=== PATIENT | female | born 1960 | race Caucasian/White ===

== ENCOUNTER 2017-07-09 18:26 | Emergency (ER) | payer MEDICARE, OTHER ==
[~2017-07-09] VITALS: Ht 157.5 cm; Wt 48.5 kg
[~2017-07-09 18:26] MED LIST: ALBU2.5V14 NEB; ALPR1TAB6 PO; BECL8.7A6 IH; BECL8.7A7 IH; CHOL100013 PO; CYCL10TA2 PO; DULO30CA43 PO; ERGO500027 PO; ESOM40CA25 PO; FLUO10CA13 PO; HALO5AMP2 PO; HYDR-971 PO; ORPH100T PO; TIOT18CA IH; VENTOLIN HFA18 GM IH
[2017-07-09 19:19] VITALS: BP 123/61
[2017-07-09] MEDS ORDERED: HYDR-963 PO (19:33)
[2017-07-09] MEDS ORDERED: CLIN150C14 PO (19:33)
--- NOTE | 2017-07-09 19:33 | PHYS DOC ---
Past Medical History Past Medical History: Arthritis, Bipolar, Bronchitis, Cancer, COPD, Depression , GERD, Schizophrenia, Other Additional Past Medical Histor: CHRONIC BACK PROBLEMS, OSTEOPOROSIS, STOMACH CA , ESOPHAGEAL CA Past Surgical History: Cholecystectomy, Hysterectomy, Tonsillectomy, Tubal ligation, Other Additional Past Surgical Histo: esophageal and stomach dessection, lumbar bone spurs, hernia, eye,wrist Alcohol Use: None Drug Use: None Adult General Chief Complaint Chief Complaint: MULTIPLE COMPLAINTS HPI HPI Patient is a 57 year old female with history of bipolar, depression, schizophrenia, COPD, who presents today with 2 complaints. Patient is complaining of pain on the left hand. She states she had left hand surgery done by a hand surgeon a couple weeks ago. Patient states for the last 4 days she's had increased pain with no known injury. Patient states she called the hand surgeon at the end of last week but has not heard back from them. She is also complaining of an abscess on her right pubic that she's had for one week. She states she's has tried [id number] remedies to bring it to her head with no relief. Review of Systems Review of Systems Constitutional: Denies fever or chills [] Musculoskeletal: Left hand pain Integument: Pubic abscess Neurologic: Denies headache, focal weakness or sensory changes [] Allergies Allergies Allergies Coded Allergies Type Severity Reaction Last Updated Verified adhesive Allergy Intermediate 12/16/15 No aspirin Allergy Intermediate 12/16/15 No cephalexin Allergy Intermediate 12/16/15 No latex Allergy Intermediate 12/16/15 No levofloxacin Allergy Intermediate 06/14/14 No sulfamethizole Allergy Intermediate 06/14/14 No ibuprofen Adverse Reaction Unknown 07/04/15 No Physical Exam Physical Exam Constitutional: Well developed, well nourished, no acute distress, non-toxic appearance. [] Skin: Warm, dry, right pubic with an integrated area approximately 1 x 1 cm with surrounding cellulitis. The area is warm tender to touch but not fluctuant. Back: No tenderness, no CVA tenderness. [] Extremities: Left hand is in a splint. There is multiple old healed surgical scars noted on the left hand. Full range of motion to the left fingers. +2 left radial pulse. Cap refill less than 2 seconds the left hand. Adequate radial medial and ulnar sensation to the left hand. Neurologic: Alert and oriented X 3, normal motor function, normal sensory function, no focal deficits noted. [] Psychologic: Affect normal, judgement normal, mood normal. [] Current Patient Data Vital Signs Vital Signs Date Time Temp Pulse Resp B/P (MAP) Pulse Ox O2 Delivery O2 Flow Rate FiO2 07/09/17 19:19 97.8 52 18 99 Room Air 97.8 EKG EKG [] Radiology/Procedures Radiology/Procedures [] Course & Med Decision Making Course & Med Decision Making Pertinent Labs and Imaging studies reviewed. (See chart for details) Patient has pubic abscess that was not ready to be drained. Recommended warm compresses to the area. Discharged on clindamycin. Tetanus is up-to-date. She is also complaining of chronic left hand pain. She had surgery to the left hand acouple weeks ago. I recommended she follows up with her hand surgeon for this. Dragon Disclaimer Dragon Disclaimer This electronic medical record was generated, in whole or in part, using a voice recognition dictation system. Departure Departure Impression: Primary Impression: Left hand pain Additional Impression: Abscess of pubic region Disposition: 01 HOME, SELF-CARE Condition: STABLE Referrals: CHARLETTE SHEPHERD MD (PCP) Follow up with the hand surgeon and the primary care doctor in the next 7 days Patient Instructions: Abscess Additional Instructions: You were seen with left hand pain and pubic abscess. You need to follow-up with your hands surgeon for the hand pain. We put you on antibiotics to clear the pubic abscess. Continue applying warm compresses to the area 2 or 3 times a day. If the area comes to a head come back to the emergency room and will drain it. Complete your antibiotics. Scripts Hydrocodone/Apap 10-325 (NORCO 10-325 TABLET) 1 Each Tablet 1 TAB PO Q4-6HRS, #10 TAB Prov: YANNA JACOB APRN 07/09/17 Clindamycin Hcl (CLINDAMYCIN HCL) 150 Mg Capsule 3 CAP PO TID, #90 CAP Prov: YANNA JACOB APRN 07/09/17 Problem Qualifiers YANNA JACOB APRN Jul 09, 2017 19:33
== END 2017-07-09 19:38 | disposition home or self-care (01) ==
LOC: ER 18:26
DX: M79.642 Pain in left hand (principal); L02.214 Cutaneous abscess of groin; K21.9 Gastro-esophageal reflux disease without esophagitis; F20.9 Schizophrenia, unspecified; F31.9 Bipolar disorder, unspecified; M19.90 Unspecified osteoarthritis, unspecified site; Z90.710 Acquired absence of both cervix and uterus; Z90.49 Acquired absence of other specified parts of digestive tract; Z98.51 Tubal ligation status; Z88.6 Allergy status to analgesic agent; Z88.1 Allergy status to other antibiotic agents; Z88.2 Allergy status to sulfonamides; Z88.8 Allergy status to other drugs, medicaments and biological substances; Z91.040 Latex allergy status
CPT/HCPCS: 99283

== ENCOUNTER → 2017-07-21 | Day surgery (SDC) | payer MEDICARE, OTHER ==
[~2017-07-21] MED LIST changes: +CLIN150C14 PO; +ESOM20CA PO; +HYDR-963 PO; +HYDROmorphone 2 MG/ML VIAL IV PRN; +IV RINGERS,LACTATED 1000ML 1,000 ML IV SCH; +LIDOCAINE 1% PF 2 ML VIAL. ID PRN; +LIDOCAINE 2% PF Vial for OR 5 ML VIAL. ONE; +MORPHINE SULFATE 2 MG/ML DISP.SYRIN. IV PRN; +ONDA4TAB7 PO; +ONDANSETRON PF 4 MG/2 ML VIAL. IV PRN; +PROCHLORPERAZINE 10 MG/2 ML VIAL. IV PRN; +PROPOFOL 20 ML IV ONE; +fentaNYL PF VIAL 100 MCG/2 ML VIAL IV PRN
[2017-07-21 11:13] VITALS: BP 106/48
--- NOTE | 2017-07-23 09:44 | CONS ---
DATE OF CONSULTATION: 07/21/2017 DATE OF SERVICE: 07/21/2017 REASON FOR CONSULTATION: History of colonic polyps and dysphagia. REFERRING PHYSICIAN: Kam Castillo MD HISTORY OF PRESENT ILLNESS: A 57-year-old female with past medical history significant for hypertension, anxiety, depression, history of Goel's, peptic ulcer disease, osteoporosis, asthma, status post tubal ligation, cholecystectomy, hysterectomy, esophageal myotomy and ____ esophageal resection seen with recurrent dysphagia mainly for solids. She has had difficulties with this through the years with ischemic stricture requiring balloon dilatation on intermittent basis. She was here again for repeat evaluation. She also has history of colonic polyps and surveillance of colon recommended at this time. MEDICATIONS: Include albuterol, Ventolin, alprazolam, beclomethasone, cyclobenzaprine, duloxetine, omeprazole, Haldol, Zofran. PAST MEDICAL HISTORY: Hypertension, anxiety, depression, Goel's, peptic ulcer, osteoporosis, asthma. ALLERGIES: ASPIRIN, CEPHALEXIN, IBUPROFEN, LEVOFLOXACIN. SOCIAL HISTORY: She is single, is an ex-smoker. FAMILY HISTORY: Noncontributory. REVIEW OF SYSTEMS: Per above. PHYSICAL EXAMINATION: GENERAL: Reveals a well-nourished, well-developed female. VITAL SIGNS: Temperature is 97.1, pulse 72, respirations 18. HEENT: Normocephalic and atraumatic head. Pupils and extraocular muscles not tested. Sclerae anicteric. NECK: Supple. LUNGS: Clear. CARDIOVASCULAR: Reveals S1, S2 without S3, S4 or appreciable murmur. ABDOMEN: Reveals soft abdomen, normal bowel sounds, without appreciable hepatosplenomegaly with multiple surgical incisions. EXTREMITIES: Reveals no cyanosis, clubbing or edema. IMPRESSION: 1. Dysphagia with a nonischemic esophageal stricture. Recommend EGD with possible dilatation. Risks and benefits of procedure have been discussed. The patient is willing to proceed. 2. History of colonic polyps. Surveillance exam is recommended. Risks and benefits have been discussed with the patient including risk of perforation during the operation. She is willing to proceed at this time. I would like to thank Dr. Castillo for allowing us to consult and participate in this patient's care. TERRY GALLAGHER MD DR: MADIHA/tisha JOB#: [id number] / [id number] KAM Ron MD
--- NOTE | 2017-07-24 15:07 | PATHOLOGY ---
PATHOLOGY REPORT * * * * * * * * FINAL DIAGNOSIS: Sigmoid colon polypectomy: - Tubular adenoma. COMMENT: There is no high grade dysplasia or evidence of malignancy. (JPM:mml; 07/24/2017) REPORT ELECTRONICALLY SIGNED BY: Kyler Jennings M.D. DATE/TIME: 07/24/2017 15:06 * * * * * * * * GROSS PATHOLOGY: Received in formalin labeled "Sayda Bui, sigmoid colon polypectomy," is a 0.6 x 0.5 x 0.4 cm polypoid piece of roque soft tissue. The margin is inked and the tissue is sectioned perpendicular to the margin and submitted in its entirety in cassette A1. (TSD; 07/21/2017) INITIAL CPT CODE(S): A; 03007 Professional services performed [place] [address] Technical services performed by [facility] at [address] [place] [address] [address], [place] [address]. SPECIMEN(S) RECEIVED: A.Sigmoid colon polypectomy CLINICAL HISTORY: History of polyp PATIENT: SAYDA BUI /AGE: 704/14/1960 (Age: 57) PATIENT #: [id number] ALT CASE #: SPECIMEN COLLECTION DATE: 07/21/2017 SPECIMEN RECEIVED DATE: 07/21/2017 [facility] - [address] [place] [address] - PHONE: [phone] * * * END OF REPORT * * *
== END | disposition home or self-care (01) ==
LOC: ENDOS 09:15
PROVIDERS: ATTEND Internal Medicine Gastroenterology
DX: Z09 Encounter for follow-up examination after completed treatment for conditions other than malignant neoplasm (principal); Z86.010 Personal history of colon polyps; D12.5 Benign neoplasm of sigmoid colon; K64.0 First degree hemorrhoids; K22.2 Esophageal obstruction; K29.50 Unspecified chronic gastritis without bleeding; E78.00 Pure hypercholesterolemia, unspecified; J44.9 Chronic obstructive pulmonary disease, unspecified; F41.9 Anxiety disorder, unspecified; F32.9 Major depressive disorder, single episode, unspecified; F17.200 Nicotine dependence, unspecified, uncomplicated; Z72.0 Tobacco use; Z90.49 Acquired absence of other specified parts of digestive tract; Z90.710 Acquired absence of both cervix and uterus; Z87.440 Personal history of urinary (tract) infections; Z88.6 Allergy status to analgesic agent; Z91.040 Latex allergy status; Z91.048 Other nonmedicinal substance allergy status
CPT/HCPCS: 43249; 45385; J2704; 88305; J2001

== ENCOUNTER 2017-11-05 16:45 | Emergency (ER) | payer OTHER, MEDICARE ==
[2017-11-05] MEDS: predniSONE 10 MG TABLET PO ×2 (17:56)
== END 2017-11-05 18:54 | disposition home or self-care (01) ==
LOC: ER 16:45
DX: R07.89 Other chest pain (principal); M54.12 Radiculopathy, cervical region; K21.9 Gastro-esophageal reflux disease without esophagitis; J44.9 Chronic obstructive pulmonary disease, unspecified; F31.9 Bipolar disorder, unspecified; F20.9 Schizophrenia, unspecified; G89.29 Other chronic pain; Z88.1 Allergy status to other antibiotic agents; Z88.6 Allergy status to analgesic agent; Z88.2 Allergy status to sulfonamides; Z91.041 Radiographic dye allergy status; Z91.040 Latex allergy status
CPT/HCPCS: 72050; 93005; 99284-25; J7512

== ENCOUNTER → 2017-12-01 | Outpatient (CLI) | payer OTHER | END | disposition home or self-care (01) | LOC: MRI 10:26 | DX: M47.892 Other spondylosis, cervical region (principal); M50.222 Other cervical disc displacement at C5-C6 level; M48.02 Spinal stenosis, cervical region; M25.78 Osteophyte, vertebrae | CPT/HCPCS: 72141 ==

== ENCOUNTER → 2017-12-07 | Outpatient (CLI) | payer OTHER ==
[~2017-12-07] MED LIST changes: -ALBU2.5V14 NEB; -ALPR1TAB6 PO; -BECL8.7A6 IH; -BECL8.7A7 IH; -CHOL100013 PO; -CLIN150C14 PO; -CYCL10TA2 PO; -DULO30CA43 PO; -ERGO500027 PO; -ESOM20CA PO; -ESOM40CA25 PO; -FLUO10CA13 PO; -HALO5AMP2 PO; -HYDR-963 PO; -HYDR-971 PO; -HYDROmorphone 2 MG/ML VIAL IV PRN; +IOHEXOL 180 MG/ML 10 ML VIAL.; -IV RINGERS,LACTATED 1000ML 1,000 ML IV SCH; -LIDOCAINE 1% PF 2 ML VIAL. ID PRN; -LIDOCAINE 2% PF Vial for OR 5 ML VIAL. ONE; -MORPHINE SULFATE 2 MG/ML DISP.SYRIN. IV PRN; -ONDA4TAB7 PO; -ONDANSETRON PF 4 MG/2 ML VIAL. IV PRN; -ORPH100T PO; -PROCHLORPERAZINE 10 MG/2 ML VIAL. IV PRN; -PROPOFOL 20 ML IV ONE; -TIOT18CA IH; -VENTOLIN HFA18 GM IH; -fentaNYL PF VIAL 100 MCG/2 ML VIAL IV PRN; +methylPREDNISolone ACETATE 40 MG/ML VIAL.; +methylPREDNISolone ACETATE 80 MG/ML VIAL.
== END ==
LOC: PNCL 09:49
DX: M50.123 Cervical disc disorder at C6-C7 level with radiculopathy (principal); E78.00 Pure hypercholesterolemia, unspecified; I10 Essential (primary) hypertension; J44.9 Chronic obstructive pulmonary disease, unspecified; F17.210 Nicotine dependence, cigarettes, uncomplicated; G47.39 Other sleep apnea; K21.9 Gastro-esophageal reflux disease without esophagitis; M19.90 Unspecified osteoarthritis, unspecified site; F20.9 Schizophrenia, unspecified; F41.9 Anxiety disorder, unspecified; F31.9 Bipolar disorder, unspecified; Z90.49 Acquired absence of other specified parts of digestive tract; Z86.010 Personal history of colon polyps; Z90.710 Acquired absence of both cervix and uterus; Z87.440 Personal history of urinary (tract) infections
CPT/HCPCS: 62321; J1030; J1040; Q9965

== ENCOUNTER 2017-12-12 17:43 | Inpatient (IN) | payer OTHER ==
[2017-12-12 18:57] LABS: ADD MAN DIFF? NO
[2017-12-12 19:00] LABS: BASO # 0.1 x10^3/uL (0.0-0.2); BASO % 1 % (0-3); EOS # 0.1 x10^3/uL (0.0-0.7); EOS % 1 % (0-3); HEMATOCRIT 47.6 % (36.0-47.0); HEMOGLOBIN 15.8 g/dL (12.0-15.5); LYMPH # 2.6 x10^3/uL (1.0-4.8); LYMPH % 25 % (24-48); MEAN CORPUSCULAR HEMOGLOBIN 31 pg (25-35); MEAN CORPUSCULAR HGB CONC 33 g/dL (31-37); MEAN CORPUSCULAR VOLUME 93 fL (79-100); MONO # 0.7 x10^3/uL (0.0-1.1); MONO % 6 % (0-9); NEUT # 7.2 x10^3uL (1.8-7.7); NEUT % 67 % (31-73); PLATELET COUNT 240 x10^3/uL (140-400); RED BLOOD COUNT 5.15 x10^6/uL (3.50-5.40); RED CELL DISTRIBUTION WIDTH 13.3 % (11.5-14.5); WHITE BLOOD COUNT 10.6 x10^3/uL (4.0-11.0)
[2017-12-12 19:07] LABS: ANION GAP 11 (6-14); BLOOD UREA NITROGEN 7 mg/dL (7-20); BUN/CREATININE RATIO 8 (6-20); CALCIUM 8.5 mg/dL (8.5-10.1); CARBON DIOXIDE 28 mmol/L (21-32); CHLORIDE 103 mmol/L (98-107); CREATININE 0.9 mg/dL (0.6-1.0); GLUCOSE 104 mg/dL (70-99); POTASSIUM 3.3 mmol/L (3.5-5.1); SODIUM 142 mmol/L (136-145)
[2017-12-12 19:12] LABS: PARTIAL THROMBOPLASTIN TIME 25 SEC (24-38); PROTHROMBIN TIME PATIENT 12.9 SEC (11.7-14.0)
[2017-12-12 19:13] LABS: ALBUMIN 3.3 g/dL (3.4-5.0); ALBUMIN/GLOBULIN RATIO 0.9 (1.0-1.7); ALK PHOS 108 U/L (46-116); ALT (SGPT) 18 U/L (14-59); AST (SGOT) 14 U/L (15-37); TOTAL BILIRUBIN 0.6 mg/dL (0.2-1.0); TOTAL PROTEIN 6.8 g/dL (6.4-8.2)
[2017-12-12] MEDS: POTASSIUM CHLORIDE 20 MEQ TABLET.ER. PO (19:30)
[2017-12-12] MEDS ORDERED: fentaNYL PF VIAL 100 MCG/2 ML VIAL IV (19:30)
[2017-12-12] MEDS ORDERED: ONDANSETRON PF 4 MG/2 ML VIAL. IV (19:30)
[2017-12-12] MEDS: ONDANSETRON PF 4 MG/2 ML VIAL. IV (20:23)
[2017-12-12] MEDS: PROMETHAZINE IM 25 MG/ML VIAL IM (20:23)
[2017-12-12] MEDS: HALOPERIDOL LACTATE 5 MG/ML VIAL. IVP (20:45)
[2017-12-12] MEDS ORDERED: PROPOFOL 40 ML IV (22:08)
[2017-12-12] MEDS ORDERED: MIDAZOLAM HCL/PF 2 MG/2 ML VIAL. (22:09)
[2017-12-12] MEDS: DEXAMETHASONE SOD PHOS 4 MG/ML VIAL IV (22:24)
[2017-12-12] MEDS ORDERED: IV NORMAL SALINE 1000ML BAG 1,000 ML IV (23:45)
[2017-12-13] MEDS ORDERED: DEXAMETHASONE SOD PHOS 4 MG/ML VIAL IV
[2017-12-13 05:01] LABS: BASO % 0 % (0-3); EOS % 0 % (0-3); HEMATOCRIT 41.9 % (36.0-47.0); LYMPH # 0.8 x10^3/uL (1.0-4.8); LYMPH % 11 % (24-48); MEAN CORPUSCULAR HEMOGLOBIN 31 pg (25-35); MEAN CORPUSCULAR HGB CONC 33 g/dL (31-37); MEAN CORPUSCULAR VOLUME 92 fL (79-100); MONO # 0.1 x10^3/uL (0.0-1.1); MONO % 2 % (0-9); NEUT # 6.1 x10^3uL (1.8-7.7); NEUT % 87 % (31-73); PLATELET COUNT 198 x10^3/uL (140-400); RED BLOOD COUNT 4.53 x10^6/uL (3.50-5.40); RED CELL DISTRIBUTION WIDTH 13.4 % (11.5-14.5)
[2017-12-13 05:12] LABS: ADD MAN DIFF? YES
[2017-12-13 05:20] LABS: CALCIUM 8.1 mg/dL (8.5-10.1)
[2017-12-13 05:21] LABS: ANION GAP 10 (6-14); BLOOD UREA NITROGEN 5 mg/dL (7-20); CARBON DIOXIDE 26 mmol/L (21-32); CHLORIDE 108 mmol/L (98-107); CREATININE 0.8 mg/dL (0.6-1.0); GFR 74.5; GLUCOSE 135 mg/dL (70-99); POTASSIUM 4.2 mmol/L (3.5-5.1); SODIUM 144 mmol/L (136-145)
[2017-12-13] MEDS: DEXAMETHASONE SOD PHOS 4 MG/ML VIAL IV (06:13)
[2017-12-13] MEDS: FLUTICASONE 50MCG/NASAL SPRAY 16GM BOTTLE. NS (09:00)
[2017-12-13] MEDS ORDERED: ALPRAZolam 1 MG TABLET PO ×2 (09:00)
[2017-12-13 09:10] LABS: % EOS 1 % (0-5); % LYMPHS 6 % (24-48); % MONOS 2 % (0-10); % SEGS 91 % (35-66)
[2017-12-13 09:11] LABS: PLT ESTIMATE ADEQUATE (ADEQUATE)
[2017-12-13 09:54] LABS: THYROID STIM HORMONE (TSH) 1.529 uIU/mL (0.358-3.74)
[2017-12-13] MEDS: PANTOPRAZOLE 40 MG TABLET.DR. PO (11:55)
[2017-12-13] MEDS: HYDROcodone/APAP 7.5/325MG 1 TAB TABLET PO ×2 (11:56→17:47)
[2017-12-13] MEDS: ALBUTEROL SULFATE 2.5 MG/3 ML NEBU. NEB ×2 (13:10→20:07)
[2017-12-13] MEDS: BUDESONIDE 0.5 MG/2 ML NEBU. NEB ×2 (13:10→20:07)
[2017-12-13] MEDS: CYCLOBENZAPRINE 10 MG TABLET. PO (21:50)
[2017-12-13] MEDS: HALOPERIDOL 2 MG TABLET. PO (21:50)
[2017-12-14] MEDS: PANTOPRAZOLE 40 MG TABLET.DR. PO (06:15)
[2017-12-14] MEDS: ALBUTEROL SULFATE 2.5 MG/3 ML NEBU. NEB ×2 (07:38)
[2017-12-14] MEDS: BUDESONIDE 0.5 MG/2 ML NEBU. NEB (07:39)
[2017-12-14] MEDS: HYDROcodone/APAP 7.5/325MG 1 TAB TABLET PO (08:40)
[2017-12-14] MEDS: FLUTICASONE 50MCG/NASAL SPRAY 16GM BOTTLE. NS (08:40)
== END 2017-12-14 10:05 | disposition home or self-care (01) | DRG 52 ==
LOC: ER 17:43 → 4 NORTH 19:39
DX: G82.20 Paraplegia, unspecified (principal); E44.1 Mild protein-calorie malnutrition; D51.9 Vitamin B12 deficiency anemia, unspecified; M48.02 Spinal stenosis, cervical region; F20.9 Schizophrenia, unspecified; M48.04 Spinal stenosis, thoracic region; M48.061 Spinal stenosis, lumbar region without neurogenic claudication; F44.9 Dissociative and conversion disorder, unspecified; F31.9 Bipolar disorder, unspecified; E78.5 Hyperlipidemia, unspecified; E87.6 Hypokalemia; F17.210 Nicotine dependence, cigarettes, uncomplicated; G47.30 Sleep apnea, unspecified; G89.29 Other chronic pain; I10 Essential (primary) hypertension; J44.9 Chronic obstructive pulmonary disease, unspecified; K21.9 Gastro-esophageal reflux disease without esophagitis; M06.9 Rheumatoid arthritis, unspecified; M81.0 Age-related osteoporosis without current pathological fracture; Z82.3 Family history of stroke; Z82.49 Family history of ischemic heart disease and other diseases of the circulatory system; Z83.3 Family history of diabetes mellitus; Z85.01 Personal history of malignant neoplasm of esophagus; Z85.028 Personal history of other malignant neoplasm of stomach; Z87.11 Personal history of peptic ulcer disease; Z90.710 Acquired absence of both cervix and uterus; F41.9 Anxiety disorder, unspecified; K21.0 Gastro-esophageal reflux disease with esophagitis; M19.90 Unspecified osteoarthritis, unspecified site; Z90.49 Acquired absence of other specified parts of digestive tract; Z88.2 Allergy status to sulfonamides; Z88.8 Allergy status to other drugs, medicaments and biological substances; Z88.1 Allergy status to other antibiotic agents; Z91.040 Latex allergy status; R73.9 Hyperglycemia, unspecified; R00.1 Bradycardia, unspecified; Z68.20 Body mass index [BMI] 20.0-20.9, adult
CPT/HCPCS: 36415; 70450; 72141; 72146; 72148; 80048; 80053; 83036; 84443; 85007; 85025; 85610; 85730; 94640; 94760; 96372; 96374; 96375; 96376; 99285; 99285-25; J1100; J2060; J2250; J2405; J2550; J2704; J7613; J7626

== ENCOUNTER → 2017-12-22 | Outpatient (CLI) | payer OTHER | LOC: PNCL 08:58 | DX: M50.123 Cervical disc disorder at C6-C7 level with radiculopathy (principal); E78.00 Pure hypercholesterolemia, unspecified; I10 Essential (primary) hypertension; J44.9 Chronic obstructive pulmonary disease, unspecified; G47.33 Obstructive sleep apnea (adult) (pediatric); K27.9 Peptic ulcer, site unspecified, unspecified as acute or chronic, without hemorrhage or perforation; G47.30 Sleep apnea, unspecified; K20.8 Other esophagitis; M06.80 Other specified rheumatoid arthritis, unspecified site; M19.90 Unspecified osteoarthritis, unspecified site; F20.0 Paranoid schizophrenia; F32.9 Major depressive disorder, single episode, unspecified; F41.9 Anxiety disorder, unspecified; F17.200 Nicotine dependence, unspecified, uncomplicated; Z88.1 Allergy status to other antibiotic agents; Z88.2 Allergy status to sulfonamides; Z88.6 Allergy status to analgesic agent; Z88.8 Allergy status to other drugs, medicaments and biological substances; Z91.040 Latex allergy status; Z91.018 Allergy to other foods; Z86.010 Personal history of colon polyps; Z98.890 Other specified postprocedural states; Z90.49 Acquired absence of other specified parts of digestive tract; Z90.710 Acquired absence of both cervix and uterus | CPT/HCPCS: 62321; J1030; J1040; Q9965 ==

== ENCOUNTER → 2018-01-05 | Outpatient (CLI) | payer OTHER | LOC: PNCL 09:37 | DX: M50.123 Cervical disc disorder at C6-C7 level with radiculopathy (principal); Z88.2 Allergy status to sulfonamides; Z91.040 Latex allergy status; Z88.8 Allergy status to other drugs, medicaments and biological substances; Z91.048 Other nonmedicinal substance allergy status | CPT/HCPCS: 62321; J1030; J1040; Q9965 ==

== ENCOUNTER 2018-06-02 16:27 | Emergency (ER) | payer OTHER ==
[~2018-06-02] VITALS: Ht 152.4 cm; Wt 49.4 kg
[~2018-06-02 16:27] MED LIST changes: +ADAP45CR2 TP; +ALBU2.5V14 NEB; +ALPR1TAB6 PO; +AMMO385C5 TP; +BECL8.7A6 IH; +BECL8.7A7 IH; +CHOL100013 PO; +CLIN150C14 PO; +CYAN10005 PO; +CYCL10TA2 PO; +DULO30CA43 PO; +ERGO500027 PO; +ESOM20CA PO; +ESOM40CA25 PO; +FLUO10CA13 PO; +FLUO15CR TP; +FLUT16SP NS; +HALO2TAB PO; +HALO5AMP2 PO; +HYDR-2762 PO; +HYDR-963 PO; +HYDR-971 PO; -IOHEXOL 180 MG/ML 10 ML VIAL.; +METH4TAB2 PO; +ONDA4TAB7 PO; +ORPH100T PO; +TIOT18CA IH; +VENTOLIN HFA18 GM IH; -methylPREDNISolone ACETATE 40 MG/ML VIAL.; -methylPREDNISolone ACETATE 80 MG/ML VIAL.
[2018-06-02 16:59] VITALS: BP 123/59
[2018-06-02 17:51] LABS: BASO % 1 % (0-3); EOS # 0.2 x10^3/uL (0.0-0.7); EOS % 3 % (0-3); HEMATOCRIT 41.3 % (36.0-47.0); LYMPH # 2.1 x10^3/uL (1.0-4.8); LYMPH % 39 % (24-48); MEAN CORPUSCULAR HEMOGLOBIN 31 pg (25-35); MEAN CORPUSCULAR HGB CONC 34 g/dL (31-37); MEAN CORPUSCULAR VOLUME 91 fL (79-100); MONO # 0.4 x10^3/uL (0.0-1.1); MONO % 8 % (0-9); NEUT # 2.8 x10^3uL (1.8-7.7); NEUT % 50 % (31-73); PLATELET COUNT 179 x10^3/uL (140-400); RED BLOOD COUNT 4.52 x10^6/uL (3.50-5.40); RED CELL DISTRIBUTION WIDTH 13.3 % (11.5-14.5); WHITE BLOOD COUNT 5.5 x10^3/uL (4.0-11.0)
[2018-06-02 18:05] LABS: CALCIUM 8.2 mg/dL (8.5-10.1); CREATININE 0.9 mg/dL (0.6-1.0); GFR 64.8; TOTAL BILIRUBIN 0.7 mg/dL (0.2-1.0); TOTAL PROTEIN 6.1 g/dL (6.4-8.2)
[2018-06-02 18:07] LABS: POTASSIUM 2.9 mmol/L (3.5-5.1)
[2018-06-02] MEDS ORDERED: POTASSIUM CHLORIDE 20 MEQ TABLET.ER. PO ONE (18:30)
[2018-06-02] MEDS ORDERED: METH4TAB2 PO (18:42)
[2018-06-02] MEDS ORDERED: CLIN300C8 PO (18:42)
[2018-06-02] MEDS ORDERED: POTASSIUM CHLORIDE 20 MEQ/15 ML ORAL LIQUID. PO ONE (18:45)
--- NOTE | 2018-06-02 18:45 | PHYS DOC ---
Past Medical History Past Medical History: Arthritis, Bipolar, Bronchitis, Cancer, COPD, Depression , GERD, Schizophrenia, Other Additional Past Medical Histor: CHRONIC BACK PROBLEMS, OSTEOPOROSIS, STOMACH CA , ESOPHAGEAL CA Past Surgical History: Cholecystectomy, Hysterectomy, Tonsillectomy, Tubal ligation, Other Additional Past Surgical Histo: esophageal and stomach dessection, lumbar bone spurs, hernia, eye,wrist Alcohol Use: None Drug Use: None Adult General Chief Complaint Chief Complaint: SKIN RASH/ABSCESS [facility] HPI Patient is a 58 year old female who presents with a itchy and painful rash covering her back. The patient also has what appear to be a few petechiae on her forearms. She denies musculoskeletal pain. She states that the rash gives her a burning sensation. She denies fever, nausea or vomiting. Review of Systems Review of Systems Constitutional: Denies fever or chills [] Respiratory: Denies cough or shortness of breath [] Cardiovascular: No additional information not addressed in HPI [] GI: Denies abdominal pain, nausea, vomiting, bloody stools or diarrhea [] : Denies dysuria or hematuria [] Musculoskeletal: Denies back pain or joint pain [] Integument: See history of present illness Neurologic: Denies headache, focal weakness or sensory changes [] Endocrine: Denies polyuria or polydipsia [] All other systems were reviewed and found to be within normal limits, except as documented in this note. Current Medications Current Medications Current Medications Medications (Trade) Dose Ordered Sig/Radha Start Time Stop Time Status Last Admin Dose Admin Potassium Chloride (KCl Oral Soln) 40 meq 1X ONCE 06/02/18 18:45 06/02/18 18:46 Potassium Chloride (Klor-Con) 40 meq 1X ONCE 06/02/18 18:30 06/02/18 18:31 DC 06/02/18 18:22 40 MEQ Allergies Allergies Allergies Coded Allergies Type Severity Reaction Last Updated Verified adhesive Allergy Intermediate 12/14/17 Yes aspirin Allergy Intermediate 12/14/17 Yes cephalexin Allergy Intermediate 12/14/17 Yes latex Allergy Intermediate 12/14/17 Yes levofloxacin Allergy Intermediate 12/14/17 Yes sulfamethizole Allergy Intermediate 12/14/17 Yes ibuprofen Adverse Reaction Intermediate 12/14/17 Yes Uncoded Allergies Type Severity Reaction Last Updated Verified dial soap Allergy Unknown 12/07/17 ivory soap Allergy Unknown 12/07/17 Physical Exam Physical Exam Constitutional: Well developed, well nourished, no acute distress, non-toxic appearance. [] Cardiovascular:Heart rate regular rhythm, no murmur [] Lungs & Thorax: Bilateral breath sounds clear to auscultation [] Abdomen: Bowel sounds normal, soft, no tenderness, no masses, no pulsatile masses. [] Skin: Generalized erythematous papules to the patient's mid to lower back with evidence of excoriation, looks consistent with folliculitis. Back: No tenderness, no CVA tenderness. [] Extremities: No tenderness, no cyanosis, no clubbing, ROM intact, no edema. [] Neurologic: Alert and oriented X 3, normal motor function, normal sensory function, no focal deficits noted. [] Psychologic: Affect normal, judgement normal, mood normal. [] Current Patient Data Vital Signs Vital Signs Date Time Temp Pulse Resp B/P (MAP) Pulse Ox O2 Delivery O2 Flow Rate FiO2 06/02/18 16:59 98.1 54 18 98 Room Air 98.1 Lab Values Laboratory Tests Test 06/02/18 17:40 White Blood Count 5.5 x10^3/uL (4.0-11.0) Red Blood Count 4.52 x10^6/uL (3.50-5.40) Hemoglobin 14.0 g/dL (12.0-15.5) Hematocrit 41.3 % (36.0-47.0) Mean Corpuscular Volume 91 fL (79-100) Mean Corpuscular Hemoglobin 31 pg (25-35) Mean Corpuscular Hemoglobin Concent 34 g/dL (31-37) Red Cell Distribution Width 13.3 % (11.5-14.5) Platelet Count 179 x10^3/uL (140-400) Neutrophils (%) (Auto) 50 % (31-73) Lymphocytes (%) (Auto) 39 % (24-48) Monocytes (%) (Auto) 8 % (0-9) Eosinophils (%) (Auto) 3 % (0-3) Basophils (%) (Auto) 1 % (0-3) Neutrophils # (Auto) 2.8 x10^3uL (1.8-7.7) Lymphocytes # (Auto) 2.1 x10^3/uL (1.0-4.8) Monocytes # (Auto) 0.4 x10^3/uL (0.0-1.1) Eosinophils # (Auto) 0.2 x10^3/uL (0.0-0.7) Basophils # (Auto) 0.0 x10^3/uL (0.0-0.2) Sodium Level 141 mmol/L (136-145) Potassium Level 2.9 mmol/L (3.5-5.1) *L Chloride Level 106 mmol/L (98-107) Carbon Dioxide Level 31 mmol/L (21-32) Anion Gap 4 (6-14) L Blood Urea Nitrogen 10 mg/dL (7-20) Creatinine 0.9 mg/dL (0.6-1.0) Estimated GFR (Cockcroft-Gault) 64.8 BUN/Creatinine Ratio 11 (6-20) Glucose Level 63 mg/dL (70-99) L Calcium Level 8.2 mg/dL (8.5-10.1) L Total Bilirubin 0.7 mg/dL (0.2-1.0) Aspartate Amino Transferase (AST) 17 U/L (15-37) Alanine Aminotransferase (ALT) 18 U/L (14-59) Alkaline Phosphatase 116 U/L (46-116) Total Protein 6.1 g/dL (6.4-8.2) L Albumin 3.0 g/dL (3.4-5.0) L Albumin/Globulin Ratio 1.0 (1.0-1.7) Laboratory Tests 06/02/18 17:40 Laboratory Tests 06/02/18 17:40 EKG EKG [] Radiology/Procedures Radiology/Procedures [] Course & Med Decision Making Course & Med Decision Making Pertinent Labs and Imaging studies reviewed. (See chart for details) []The patient was given 40 mEq of potassium in the emergency department. Dragon Disclaimer Dragon Disclaimer This electronic medical record was generated, in whole or in part, using a voice recognition dictation system. Departure Departure Impression: Primary Impression: Folliculitis Additional Impression: Hypokalemia Disposition: 01 HOME, SELF-CARE Condition: STABLE Referrals: CHARLETTE SHEPHERD MD (PCP) Patient Instructions: Folliculitis, Hypokalemia-Brief Additional Instructions: Increase your intake of potassium rich foods. Follow-up with your primary care provider within the week. Take medication as directed. If worsening return to the emergency department. Scripts Methylprednisolone (MEDROL) 4 Mg Tab.ds.pk 1 PKG PO UD, #1 PKG Prov: JACKELYN GOODMAN APRN 06/02/18 Clindamycin Hcl (CLINDAMYCIN HCL) 300 Mg Capsule 1 CAP PO TID, #30 CAP Prov: JACKELYN GOODMAN APRN 06/02/18 Problem Qualifiers JACKELYN GOODMAN APRN Jun 02, 2018 18:45
== END 2018-06-02 19:03 | disposition home or self-care (01) ==
LOC: ER 16:27
DX: L73.9 Follicular disorder, unspecified (principal); E87.6 Hypokalemia; F31.9 Bipolar disorder, unspecified; J44.9 Chronic obstructive pulmonary disease, unspecified; K21.9 Gastro-esophageal reflux disease without esophagitis; G89.29 Other chronic pain; F20.9 Schizophrenia, unspecified; Z88.1 Allergy status to other antibiotic agents; Z88.6 Allergy status to analgesic agent; Z88.2 Allergy status to sulfonamides; Z88.8 Allergy status to other drugs, medicaments and biological substances; Z91.040 Latex allergy status
CPT/HCPCS: 36415; 80053; 85025; 99284

== ENCOUNTER → 2018-10-04 | Outpatient (CLI) | payer OTHER ==
[~2018-10-04] MED LIST changes: +CLIN300C8 PO; -HYDR-2762 PO; +HYDR-2765 PO; +HYDR-3135 PO; +HYDR-3164 PO; -HYDR-963 PO; -HYDR-971 PO
--- NOTE | 2018-10-04 14:44 | RAD ---
DATE: 10/04/2018 EXAM: MAMMO JAIDEN SCREENING BILATERAL HISTORY: Routine screening COMPARISON: None available This study was interpreted with the benefit of Computerized Aided Detection (CAD). Breast Density: HETERO The breast parenchyma is heterogenously dense, which could reduce sensitivity of mammography. Breast parenchyma level C. FINDINGS: 2-D and 3-D tomosynthesis imaging was performed in CC and MLO projections. The breasts are asymmetric with increased density laterally in the left breast compared to the right. This probably represents a normal variant in the fibroglandular pattern in this patient. No spiculated mass or architectural distortion is seen. No suspicious microcalcifications are present. IMPRESSION: Mild breast asymmetry, likely a normal variant. In the absence of previous mammograms to establish stability, a targeted ultrasound exam of the lateral aspect left breast is suggested for further evaluation. BI-RADS CATEGORY: 0 INCOMPLETE: NEEDS ADDITIONAL IMAGING EVALUATION AND/OR PRIOR MAMMOGRAMS FOR COMPARISON. RECOMMENDED FOLLOW-UP: ADD ADDITIONAL IMAGING PQRS compliance statement: Patient information was entered into a reminder system with a target due date for the next mammogram. Mammography is a sensitive method for finding small breast cancers, but it does not detect them all and is not a substitute for careful clinical examination. A negative mammogram does not negate a clinically suspicious finding and should not result in delay in biopsying a clinically suspicious abnormality. "Our facility is accredited by the [employer] Mammography Program."
== END | disposition home or self-care (01) ==
LOC: MAMMO 13:45
PROVIDERS: ATTEND Nurse Practitioner Gerontology
DX: Z12.31 Encounter for screening mammogram for malignant neoplasm of breast (principal)
CPT/HCPCS: 77063; 77067

== ENCOUNTER → 2018-10-05 | Outpatient (CLI) | payer OTHER ==
--- NOTE | 2018-10-05 12:56 | RAD ---
Left breast ultrasound, 09/27/2018: History: Abnormal mammograms A targeted ultrasound exam of the lateral aspect of left breast was performed. Normal heterogeneous fibroglandular shadows are present. No solid mass or unusual fluid collection is seen. The asymmetry noted on the recent mammograms most likely represents a normal variant in the fibroglandular pattern. IMPRESSION: The targeted ultrasound exam of the left breast reveals no abnormality. Routine yearly mammographic follow-up is suggested. BI-RADS 2-benign findings
== END | disposition home or self-care (01) ==
LOC: US 12:04
PROVIDERS: ATTEND Nurse Practitioner Gerontology
DX: R92.8 Other abnormal and inconclusive findings on diagnostic imaging of breast (principal)
CPT/HCPCS: 76641

== ENCOUNTER 2018-12-30 12:47 | Emergency (ER) | payer OTHER ==
[~2018-12-30] VITALS: Ht 154.9 cm; Wt 47.6 kg
[2018-12-30 13:05] VITALS: BP 109/59
--- NOTE | 2018-12-30 13:40 | PHYS DOC ---
Past Medical History Past Medical History: Arthritis, Bipolar, Bronchitis, Cancer, COPD, Depression , GERD, Schizophrenia, Other Additional Past Medical Histor: CHRONIC BACK PROBLEMS, OSTEOPOROSIS, STOMACH CA , ESOPHAGEAL CA Past Surgical History: Cholecystectomy, Hysterectomy, Tonsillectomy, Tubal ligation, Other Additional Past Surgical Histo: esophageal and stomach dissection, lumbar bone spurs, hernia, eye, L wrist Additional Information: 1/2 PACK/DAY Alcohol Use: None Drug Use: None Adult General Chief Complaint Chief Complaint: HAND PROBLEM HPI HPI 58 yo F with left thumb injury. She was opening sliding glass door when her family member was trying to close it. Her thumb was caught in it and now it is bruised with swelling. Pain is moderate, nonradiating and mildly alleviated with apap about 1.5 hours ago. ROS is neg for cp, soa, or any other injuries. All other review of systems is negative unless otherwise noted in history of present illness. ED course: 58 yo presenting with thumb injury. X-ray reviewed by myself shows an acute proximal phalanx fracture of the proximal first phalanx on the lateral side. This is consistent with the patient's pain is. We'll place the patient in thumb spica and refer the patient to orthopedic surgery. The patient also has snuffbox tenderness so we will protect this as well with this splint. Review of Systems Review of Systems SEE ABOVE. Allergies Allergies Allergies Coded Allergies Type Severity Reaction Last Updated Verified adhesive Allergy Intermediate 12/14/17 Yes aspirin Allergy Intermediate 12/14/17 Yes cephalexin Allergy Intermediate 12/14/17 Yes latex Allergy Intermediate 12/14/17 Yes levofloxacin Allergy Intermediate 12/14/17 Yes sulfamethizole Allergy Intermediate 12/14/17 Yes ibuprofen Adverse Reaction Intermediate 12/14/17 Yes Uncoded Allergies Type Severity Reaction Last Updated Verified dial soap Allergy Unknown 12/07/17 ivory soap Allergy Unknown 12/07/17 Physical Exam Physical Exam SEE ABOVE Constitutional: Well developed, well nourished, no acute distress, non-toxic appearance. [] HENT: Normocephalic, atraumatic, bilateral external ears normal, oropharynx moist, no oral exudates, nose normal. [] Eyes: PERRLA, EOMI, conjunctiva normal, no discharge. [] Neck: Normal range of motion, no tenderness, supple, no stridor. [] Cardiovascular:Heart rate regular rhythm, no murmur [] Lungs & Thorax: Bilateral breath sounds clear to auscultation [] Abdomen: Bowel sounds normal, soft, no tenderness, no masses, no pulsatile masses. [] Skin: Warm, dry, no erythema, no rash. [] Back: No tenderness, no CVA tenderness. [] Extremities: left hand is nvi with palpable pulse. ttp along proximal phalynx with swelling. mild ttp in the snuff box. Neurologic: Alert and oriented X 3, normal motor function, normal sensory function, no focal deficits noted. [] Psychologic: Affect normal, judgement normal, mood normal. [] Current Patient Data Vital Signs Vital Signs Date Time Temp Pulse Resp B/P (MAP) Pulse Ox O2 Delivery O2 Flow Rate FiO2 12/30/18 13:05 97.9 54 18 109/59 (76) 95 Room Air 97.9 EKG EKG [] Radiology/Procedures Radiology/Procedures [] Course & Med Decision Making Course & Med Decision Making Pertinent Labs and Imaging studies reviewed. (See chart for details) [] Dragon Disclaimer Dragon Disclaimer This electronic medical record was generated, in whole or in part, using a voice recognition dictation system. Departure Departure Impression: Primary Impression: Closed fracture of base of distal phalanx of left thumb Disposition: 01 HOME, SELF-CARE Condition: STABLE Referrals: CHARLETTE SHEPHERD MD (PCP) LACHELLE ESPINO II, MD Additional Instructions: Thank you for allowing us to participate in your care today. Return to the emergency department you have any new or worsening symptoms, or if you are concerned for any reason. Return to emergency department if you have any new or concerning symptoms including but not limited to fever, chills, nausea, vomiting, intractable pain, any new rashes, chest pain, shortness of air , uncontrolled bleeding, difficulty breathing, and/or vision loss. Follow up with your primary care physician within Dr. Espino orthopedic surgery. Call your Primary Doctor tomorrow and inform them of your visit today. If you do not have a primary care provider we are happy to provide you with a list of our primary care providers contact information. This condition should be evaluated by your primary care physician and any recommended consulting services for continued management within 2 days after discharge. If at any time, you are having difficulty getting into your primary care doctor or a specialist, return to the emergency department. RUBEN SNOW MD Dec 30, 2018 13:40
--- NOTE | 2018-12-30 13:48 | RAD ---
Examination: HAND LEFT 3V History: injured night. there is bruising and discoloration of thumb and back of hand Comparison/Correlation: None Findings: Total 3 images of the left hand were obtained. Plate and associated screws at the dorsal aspect of the left distal radius and third metacarpal bone noted. There is a small plate along the bursal aspect of the second proximal metacarpal region and first proximal metacarpal region. Marked osteopenia is noted. Degenerative narrowing of interphalangeal joints is mild. Marked deformity of carpal bones medially identified. No acute fracture or acute bony destruction. Soft tissues are unremarkable. Impression: Marked osteopenia. No definite acute process. Electronically signed by: Faheem Fair MD (12/30/2018 1:45 PM) [facility]
--- NOTE | 2018-12-30 14:15 | RAD ---
Examination: WRIST 2V LEFT History: SNUFF BOX TENDERNESS. I ATTEMPTED A DEDICATED SCAPHOID VIEW 2X AT DRS REQUEST. PATIENT HAS LIMITED RANGE OF MOTION CANT DEVIATE WRIST LATERALLY. PATIENT IS ON A SPONGE AT 20 DEGREES CR ANGLE PERPENDUCULAR. Comparison/Correlation: Left hand 3 view x-ray examination performed earlier on the same day Findings: 2 views of the left wrist were obtained in the PA projection. Very limited range of motion limits optimal positioning to assess for scaphoid bone. Postoperative findings again seen. Carpal bones are diminutive and severely deformed. Osteopenia is notable. Bony density which may represent nonunion fracture of the ulnar styloid is chronic in appearance. Impression: Severe carpal bone deformity. Osteopenia. No acute fracture identified although evaluation may be limited with severe osteopenia and limited ability to optimally position the patient's left wrist. Electronically signed by: Faheem Fair MD (12/30/2018 2:10 PM) [facility]
== END 2018-12-30 15:00 | disposition home or self-care (01) ==
LOC: ER 12:47
DX: S62.522A Displaced fracture of distal phalanx of left thumb, initial encounter for closed fracture (principal); M85.842 Other specified disorders of bone density and structure, left hand; M21.832 Other specified acquired deformities of left forearm; F31.9 Bipolar disorder, unspecified; J44.9 Chronic obstructive pulmonary disease, unspecified; K21.9 Gastro-esophageal reflux disease without esophagitis; F20.9 Schizophrenia, unspecified; G89.29 Other chronic pain; F17.200 Nicotine dependence, unspecified, uncomplicated; Z88.1 Allergy status to other antibiotic agents; Z88.2 Allergy status to sulfonamides; Z88.5 Allergy status to narcotic agent; Z88.6 Allergy status to analgesic agent; Z91.040 Latex allergy status; Z88.8 Allergy status to other drugs, medicaments and biological substances; W23.0XXA Caught, crushed, jammed, or pinched between moving objects, initial encounter; Y93.89 Activity, other specified; Y92.89 Other specified places as the place of occurrence of the external cause; Y99.8 Other external cause status
CPT/HCPCS: 29125; 73100; 73130; 99283-25

== ENCOUNTER → 2020-02-28 | Outpatient (CLI) | payer OTHER, MEDICAID ==
[~2020-02-28] MED LIST changes: +CYAN-25 PO; +CYAN10002 IJ; -CYAN10005 PO; +DOCU-109 PO; -DULO30CA43 PO; +DULO30CA44 PO; +DULO60CA6 PO; +FLUT12AE IH; +IPRA4AER IH; +ONDA8TAB9 PO
== END | disposition home or self-care (01) ==
LOC: SURGPAT 12:52
PROVIDERS: ATTEND Orthopaedic Surgery Sports Medicine
DX: Z01.818 Encounter for other preprocedural examination (principal); Z11.59 Encounter for screening for other viral diseases; M65.312 Trigger thumb, left thumb
CPT/HCPCS: C9803; U0003; 36415

== ENCOUNTER 2020-03-04 08:10 | Day surgery (SDC) | payer OTHER, MEDICAID ==
[~2020-03-04] VITALS: Ht 154.9 cm; Wt 48.5 kg
[~2020-03-04 08:10] MED LIST changes: +CLINDAMYCIN 900MG PREMIX 50 ML IV PRN; +DEXAMETHASONE SOD PHOS 4 MG/ML VIAL ONE; -DOCU-109 PO; +HYDROmorphone 2 MG/ML VIAL IV PRN; +IV RINGERS,LACTATED 1000ML 1,000 ML IV SCH; +LIDOCAINE 1% PF 2 ML VIAL. ID PRN; +LIDOCAINE 2% PF 5 ML VIAL. ONE; +MORPHINE SULFATE 2 MG/ML VIAL. IV PRN; -ONDA8TAB9 PO; +ONDANSETRON PF 4 MG/2 ML VIAL. ONE; +PHENYLEPHRINE in 0.9% NACL PF 1 MG/10 ML SYRINGE. IV ONE; +PROCHLORPERAZINE 10 MG/2 ML VIAL. IV PRN; +PROPOFOL 10 MG/ML (20ML) VIAL. IV ONE; +ROCURONIUM 50 MG/5 ML VIAL. ONE; +SUCCINYLCHOLINE 200 MG/10 ML VIAL. ONE; +ePHEDrine PF IN SALINE 50 MG/10 ML SYRINGE. IV ONE; +fentaNYL PF VIAL 100 MCG/2 ML VIAL IV PRN; +fentaNYL PF VIAL 100 MCG/2 ML VIAL ONE
--- NOTE | 2020-03-04 09:01 | DISCH ---
DISCHARGE INSTRUCTIONS Condition on Discharge Condition on Discharge: Stable Activity After Discharge Activity Instructions for Disc: No restrictions, Activity as tolerated Other activity instructions: wiggle fingers Weight Bearing Status after Di: Partial weight bearing Diet after Discharge Diet after Discharge: Regular Wound Incision Care Wound/Incision Care: Ice to area for comfort, Keep wound elevated, Change dressing Contacting the DRCally after DC Call your doctor for: Concerns you may have Follow-Up Follow up with: Izabella in 2 wks Treatment/Equipment after DC Adaptive Equipment Issued: None LACHELLE ESPINO II, MD March 04, 2020 09:01
[2020-03-04] MEDS ORDERED: BUPIVACAINE MPF 0.5% 30 ML VIAL. ONE (09:11)
[2020-03-04] MEDS ORDERED: LIDOCAINE 1% PF 30 ML VIAL. ONE (09:11)
[2020-03-04] MEDS ORDERED: SEVOFLURANE 31 TO 60 MINUTES. IH ONE (09:52)
--- NOTE | 2020-03-04 10:03 | PDOC4 ---
Operative Note Operative Note Date of procedure: 03/04/2020 Surgeon: Eugenio Espino Correspondence Transcriber: Chidi Phipps Preoperative diagnosis: Trigger fingers of left first second and third digits Postoperative diagnosis: Same Procedure performed: Open left first second and third trigger finger releases Anesthesia: general Tourniquet time: 20min Blood loss: 2 ml Findings: thickened nodule in flexor tendons of digits 1-3, left hand Complications: none Reason for procedure: Patient is a very pleasant 59-year-old female with painful catching at her digits. She had trigger finger injections from another provider which gave her temporary relief. When I had seen her in clinic, she is primarily complaining of the first and second digits catching and locking, but lately her third and gotten much worse. She requested trigger finger releases of left first second and third digits. We discussed the risks, benefits, alternatives and she wished to proceed. Reason for procedure: Patient was greeted in the preoperative area by myself or the correct digits of her left upper extremity were verified and marked. She was taken to the operative suite, her antibiotics were started as she was brought back. Once in the operating room, she had successful induction of a general anesthetic after being transferred gently supine to the operating table. She is secured to the bed with all pressure points padded. The hand board attachment was secured to the operating table. Nonsterile tourniquet was applied to her left upper extremity. Left upper extremity was exsanguinated with an Esmarch and tourniquet insufflated to 250 mmHg. Our standard preoperative timeout was conducted. I then began the procedure by making a transverse incision at the base of her thumb and subjacent to the metacarpal head, I dissected subcutaneous tissue with a mosquito, using bipolar cautery for hemostasis. Identified the flexor tendon and A1 yana and used a tenotomy scissors to transect the A1 yana, my secretary administrative assistant was holding Ragnell retractors for my visualization. I then directed my attention to repeating the same maneuver at the second and third digits. After I was certain I had released the A1 yana at these sites, I use the mosquito to deliver the flexor tendons from the operative field to help and tried accomplish complete release which I was confident I had. After this, the wounds were thoroughly irrigated out. The skin was closed with simple interrupted 3-0 nylon. Local anesthetic was injected in the mario-incisional soft tissues. The arm and hand were cleansed and dried and a sterile bulky dressing was applied. Prior to wound closure, all counts correct x2 and tourniquet had been let down, hemostasis ensured with electrocautery. At the conclusion, she was awakened from anesthesia, she tolerated surgery well. No complications. She was taken to PACU in a stable and extubated condition. Postoperative plan is to discharge her home. With wound care and postoperative instructions discussed with family and given a written form. I will see her back in 2 weeks, sooner should a problem arise EUGENIO ESPINO II, MD March 04, 2020 10:03
[2020-03-04] MEDS ORDERED: DOCU-109 PO (10:21)
[2020-03-04] MEDS ORDERED: HYDR-3164 PO (10:22)
[2020-03-04] MEDS ORDERED: ONDA8TAB9 PO (10:23)
[2020-03-04] MEDS ORDERED: HYDROcodone/APAP 5/325MG 1 TAB TABLET PO ONE (10:30)
[2020-03-04] MEDS ORDERED: HYDROcodone/APAP 5/325MG 1 TAB TABLET ONE (10:34)
[2020-03-04 10:44] VITALS: BP 119/59
== END 2020-03-04 11:16 | disposition home or self-care (01) ==
LOC: SURG 08:10
PROVIDERS: ATTEND Orthopaedic Surgery Sports Medicine
DX: M65.322 Trigger finger, left index finger (principal); M65.332 Trigger finger, left middle finger; M65.312 Trigger thumb, left thumb; Z88.6 Allergy status to analgesic agent; Z91.048 Other nonmedicinal substance allergy status; Z88.8 Allergy status to other drugs, medicaments and biological substances; Z91.040 Latex allergy status; Z79.899 Other long term (current) drug therapy
CPT/HCPCS: 26055; A7015; J0330; J2405; J2704; J3010; J3490; J1100; J2370

== ENCOUNTER → 2020-09-28 | Outpatient (CLI) | payer OTHER, MEDICAID ==
[~2020-09-28] MED LIST changes: -CLIN300C8 PO; +CLIN300C9 PO; -CLINDAMYCIN 900MG PREMIX 50 ML IV PRN; -DEXAMETHASONE SOD PHOS 4 MG/ML VIAL ONE; +DOCU-109 PO; -HYDROmorphone 2 MG/ML VIAL IV PRN; -IV RINGERS,LACTATED 1000ML 1,000 ML IV SCH; -LIDOCAINE 1% PF 2 ML VIAL. ID PRN; -LIDOCAINE 2% PF 5 ML VIAL. ONE; -MORPHINE SULFATE 2 MG/ML VIAL. IV PRN; +ONDA8TAB9 PO; -ONDANSETRON PF 4 MG/2 ML VIAL. ONE; -PHENYLEPHRINE in 0.9% NACL PF 1 MG/10 ML SYRINGE. IV ONE; -PROCHLORPERAZINE 10 MG/2 ML VIAL. IV PRN; -PROPOFOL 10 MG/ML (20ML) VIAL. IV ONE; -ROCURONIUM 50 MG/5 ML VIAL. ONE; -SUCCINYLCHOLINE 200 MG/10 ML VIAL. ONE; -ePHEDrine PF IN SALINE 50 MG/10 ML SYRINGE. IV ONE; -fentaNYL PF VIAL 100 MCG/2 ML VIAL IV PRN; -fentaNYL PF VIAL 100 MCG/2 ML VIAL ONE
--- NOTE | 2020-09-28 16:25 | RAD ---
DATE: 09/28/2020 3:30 PM EXAM: MAMMO JAIDEN SCREENING BILATERAL HISTORY: Screening COMPARISON: 10/04/2018 Bilateral CC and MLO views of the breasts were performed. Bilateral breast tomosynthesis was performed in CC and MLO projections. This study was interpreted with the benefit of Computerized Aided Detection (CAD). FINDINGS: Breast Density: HETERO The breast parenchyma Is heterogeneously dense, which could reduce sensitivity of mammography. Breast parenchyma level C No suspicious masses, microcalcifications or architectural distortion is present to suggest malignancy in either breast. The visualized axillae are unremarkable. IMPRESSION: No mammographic evidence of malignancy. BI-RADS CATEGORY: 1 NEGATIVE RECOMMENDED FOLLOW-UP: 12M 12 MONTH FOLLOW-UP Annual screening mammography is recommended, unless clinically indicated sooner based on symptoms or change in physical exam. PQRS compliance statement: Patient information was entered into a reminder system with a target due date for the next mammogram. Mammography is a sensitive method for finding small breast cancers, but it does not detect them all and is not a substitute for careful clinical examination. A negative mammogram does not negate a clinically suspicious finding and should not result in delay in biopsying a clinically suspicious abnormality. "Our facility is accredited by the [employer] Mammography Program."
== END ==
LOC: MAMMO 15:01
PROVIDERS: ATTEND Family Medicine
DX: Z12.31 Encounter for screening mammogram for malignant neoplasm of breast (principal)
CPT/HCPCS: 77063; 77067

== ENCOUNTER → 2021-02-22 | Outpatient (CLI) | payer OTHER, MEDICAID ==
[~2021-02-22] MED LIST changes: -CLIN150C14 PO; +CLIN150C15 PO
--- NOTE | 2021-02-22 08:49 | RAD ---
EXAMINATION: Bilateral lower extremity arterial duplex ultrasound INDICATION: Faint pedal pulses bilaterally. COMPARISON: None TECHNIQUE: Grayscale, color and spectral Doppler evaluation of the Bilateral lower extremity arterial system(s) was performed. FINDINGS: RIGHT PEAK SYSTOLIC VELOCITIES: COMMON FEMORAL ARTERY: 162 cm/s WAVEFORMS: Monophasic DEEP FEMORAL ARTERY: 64 cm/s WAVEFORMS: Monophasic PROXIMAL SUPERFICIAL FEMORAL ARTERY: 109 cm/s WAVEFORMS: Triphasic MID SUPERFICIAL FEMORAL ARTERY: 121 cm/s WAVEFORMS: Triphasic DISTAL SUPERFICIAL FEMORAL ARTERY: 97 cm/s WAVEFORMS: Triphasic POPLITEAL ARTERY: 73 cm/s WAVEFORMS: Triphasic DORSALIS PEDIS ARTERY: 45 cm/s WAVEFORMS: Biphasic POSTERIOR TIBIAL ARTERY: 102 cm/s WAVEFORMS: Triphasic ANTERIOR TIBIAL ARTERY: 53 cm/s WAVEFORMS: Triphasic PERONEAL ARTERY: 41 cm/s WAVEFORMS: Biphasic LEFT PEAK SYSTOLIC VELOCITIES: COMMON FEMORAL ARTERY: 124 cm/s WAVEFORMS: Biphasic DEEP FEMORAL ARTERY: 67 cm/s WAVEFORMS: Biphasic PROXIMAL SUPERFICIAL FEMORAL ARTERY: 129 cm/s WAVEFORMS: Triphasic MID SUPERFICIAL FEMORAL ARTERY: 111 cm/s WAVEFORMS: Triphasic DISTAL SUPERFICIAL FEMORAL ARTERY: 76 cm/s WAVEFORMS: Triphasic POPLITEAL ARTERY: 73 cm/s WAVEFORMS: Triphasic DORSALIS PEDIS ARTERY: 90 cm/s WAVEFORMS: Monophasic POSTERIOR TIBIAL ARTERY: 104 cm/s WAVEFORMS: Biphasic ANTERIOR TIBIAL ARTERY: 71 cm/s WAVEFORMS: Biphasic PERONEAL ARTERY: 50 cm/s WAVEFORMS: Biphasic IMPRESSION: No hemodynamically significant stenosis in both lower extremity arteries. Electronically signed by: Ginny Mitchell MD (02/22/2021 8:46 AM) [id number]
== END ==
LOC: US 08:42
PROVIDERS: ATTEND Podiatrist
DX: R09.89 Other specified symptoms and signs involving the circulatory and respiratory systems (principal)
CPT/HCPCS: 93925

== ENCOUNTER 2021-06-20 17:20 | Emergency (ER) | payer OTHER, MEDICAID ==
[~2021-06-20] VITALS: Ht 154.9 cm; Wt 42.3 kg
[~2021-06-20 17:20] MED LIST changes: -CLIN150C15 PO; +CLIN150C16 PO
[2021-06-20 17:50] VITALS: BP 155/92
--- NOTE | 2021-06-20 18:32 | PHYS DOC ---
Past Medical History Past Medical History: Arthritis, Bipolar, Bronchitis, Cancer, COPD, Depression, GERD, Schizophrenia, Other Additional Past Medical Histor: CHRONIC BACK PROBLEMS, OSTEOPOROSIS, STOMACH CA, ESOPHAGEAL CA (YANNA JACOB MICRO COMPUTER SPECIALIST) Past Surgical History: Cholecystectomy, Hysterectomy, Tonsillectomy, Tubal ligation, Other Additional Past Surgical Histo: esophageal and stomach dissection, lumbar bone spurs, hernia, eye, L wrist (YANNA JACOB MICRO COMPUTER SPECIALIST) Smoking Status: Current Every Day Smoker Alcohol Use: None Drug Use: None (YANNA JACOB MICRO COMPUTER SPECIALIST) General Adult EDM: Chief Complaint: UPPER EXTREMITY INJURY HPI: HPI: Patient is a 61 year old female with a history of depression, COPD, schizophrenia, bipolar, who presents to the ED today complaining of 10 out of 10 left forearm and left hand pain that began today after she fell. Patient states she was moving a 4 x 4's and it fell on her left forearm, she states she ended up falling down. Patient denies any loss of consciousness, denies hitting her head on the ground. Describes the pain as throbbing and intermittent worse on touching her left forearm. Denies any numbness or tingling to the left upper extremity. (YANNA JACOB MICRO COMPUTER SPECIALIST) Review of Systems: Review of Systems: Constitutional: Denies fever or chills. [] Musculoskeletal: Reports left forearm pain, left hand pain Integument: Denies rash. [] Neurologic: Denies headache, focal weakness or sensory changes. [] Psychiatric: Denies depression or anxiety. [] (YANNA JACOB MICRO COMPUTER SPECIALIST) Heart Score: C/O Chest Pain: N/A Risk Factors: Risk Factors: DM, Current or recent (<one month) smoker, HTN, HLP, family history of CAD, obesity. Risk Scores: Score 0 - 3: 2.5% MACE over next 6 weeks - Discharge Home Score 4 - 6: 20.3% MACE over next 6 weeks - Admit for Clinical Observation Score 7 - 10: 72.7% MACE over next 6 weeks - Early Invasive Strategies (YANNA JACOB MICRO COMPUTER SPECIALIST) Allergies: Allergies: Allergies Coded Allergies Type Severity Reaction Last Updated Verified adhesive Allergy Intermediate 02/27/20 Yes aspirin Allergy Intermediate 03/04/20 Yes cephalexin Allergy Intermediate 03/04/20 Yes latex Allergy Intermediate 03/04/20 Yes levofloxacin Allergy Intermediate 03/04/20 Yes sulfamethizole Allergy Intermediate 03/04/20 Yes ibuprofen Adverse Reaction Intermediate 02/27/20 Yes Uncoded Allergies Type Severity Reaction Last Updated Verified dial soap Allergy Unknown 12/07/17 ivory soap Allergy Unknown 12/07/17 (YANNA JACOB MICRO COMPUTER SPECIALIST) Physical Exam: PE: Constitutional: Well developed, well nourished, no acute distress, non-toxic appearance. [] Skin: Warm, dry, no erythema, no rash. [] Back: No tenderness, no CVA tenderness. [] Extremities: Left distal forearm with a couple superficial skin tears, present old healed surgical incision on the left wrist. There is no scaphoid te nderness. Patient reports chronic deformity of the left wrist and not able to flex or extend the wrist. Adequate radial, medial, ulnar sensation to the left fingers. +2 left radial pulse. Cap refill less than 2 seconds in left fingers Neurologic: Alert and oriented X 3, normal motor function, normal sensory function, no focal deficits noted. [] Psychologic: Affect normal, judgement normal, mood normal. [] (YANNA JACOB MICRO COMPUTER SPECIALIST) Current Patient Data: Vital Signs: Vital Signs Date Time Temp Pulse Resp B/P (MAP) Pulse Ox O2 Delivery O2 Flow Rate FiO2 06/20/21 17:50 98.6 55 18 155/92 (113) 98 98.6 (YANNA JACOB MICRO COMPUTER SPECIALIST) EKG: EKG: [] (YANNA JACOB MICRO COMPUTER SPECIALIST) Radiology/Procedures: Radiology/Procedures: []PROCEDURE: HAND LEFT 3V Exam: Left hand 3 views. Left forearm 2 views INDICATION: Fall, pain TECHNIQUE: Frontal, lateral and oblique views of the left hand. Frontal and lateral views of the left forearm Comparisons: None FINDINGS: Forearm: There is fixation plate along the posterior aspect of the distal radius extending to the third metacarpal. Several fixation screws are also seen. Diffuse osteopenia. No acute fracture. Joint spaces are well-maintained. Hand: Diffuse osteopenia. No acute or healed fractures. Soft tissues are unremarkable. Joint spaces are well-maintained. IMPRESSION: 1. No acute osseous abnormality of the left hand or left forearm. 2. Fixation hardware as described above. Electronically signed by: Hira Catalan MD (06/20/2021 7:02 PM) [facility] DICTATED and SIGNED BY: HIRA CATALAN MD DATE: 06/20/21 [id number] (YANNA JACOB APRN) Course & Med Decision Making: Course & Med Decision Making Pertinent Labs and Imaging studies reviewed. (See chart for details) This is a 61-year-old female patient presented to the ED today with left forearm and left hand pain after a 4 x 4's fell on her left forearm. Tetanus is up-to-date X-rays of the left forearm and left hand interpreted by radiologist are negative for any acute findings. Discharge home. Follow-up with orthopedic doctor in 1 week if pain persist. Ice elevation encouraged. (YANNA JACOB APRN) Course & Med Decision Making I have reviewed and was available for consultation in the emergency department for this patient that was seen by midlevel provider. Agree with plan. Nai Hart DO (NAI HART DO) Misty Disclaimer: Misty Disclaimer: This electronic medical record was generated, in whole or in part, using a voice recognition dictation system. (YANNA JACOB APRN) Departure Departure Impression: Primary Impression: Contusion of left forearm Qualified Codes: S50.12XA - Contusion of left forearm, initial encounter Additional Impressions: Contusion of left hand Qualified Codes: S60.222A - Contusion of left hand, initial encounter Fall Qualified Codes: W19.XXXA - Unspecified fall, initial encounter Disposition: ADMITTED INPATIENT Condition: STABLE Referrals: CHARLETTE SHEPHERD MD (PCP) BELKYS HACKETT Jr. DO follow up in 1-2 weeks Patient Instructions: Contusion, [id number], Fall Prevention and Home Safety Additional Instructions: You were evaluated in the emergency room, your x-rays of the left forearm and left hand are negative for any acute findings. Try to ice and elevate the affected areas. Apply Neosporin to the open wounds on the left forearm and hand. Follow-up with the orthopedic doctor or the provided orthopedic doctor in 1 to 2 weeks Scripts Methylprednisolone (MEDROL) 4 Mg Tab.ds.pk 1 PKG PO UD, #1 PKG Prov: YANNA JACOB APRN 06/20/21 Cyclobenzaprine Hcl (CYCLOBENZAPRINE HCL) 10 Mg Tablet 1 TAB PO TID, #30 TAB Prov: YANNA JACOB APRN 06/20/21 YANNA JACOB APRN Jun 20, 2021 18:32 NAI HART DO Jun 20, 2021 19:17
--- NOTE | 2021-06-20 19:05 | RAD ---
Exam: Left hand 3 views. Left forearm 2 views INDICATION: Fall, pain TECHNIQUE: Frontal, lateral and oblique views of the left hand. Frontal and lateral views of the left forearm Comparisons: None FINDINGS: Forearm: There is fixation plate along the posterior aspect of the distal radius extending to the third metaca rpal. Several fixation screws are also seen. Diffuse osteopenia. No acute fracture. Joint spaces are well-maintained. Hand: Diffuse osteopenia. No acute or healed fractures. Soft tissues are unremarkable. Joint spaces are wel l-maintained. IMPRESSION: 1. No acute osseous abnormality of the left hand or left forearm. 2. Fixation hardware as described above. Electronically signed by: Hira Ordaz MD (06/20/2021 7:02 PM) [facility]
[2021-06-20] MEDS ORDERED: METH4TAB2 PO (19:13)
[2021-06-20] MEDS ORDERED: CYCL10TA2 PO (19:13)
== END 2021-06-20 19:15 | disposition home or self-care (01) ==
LOC: ER 17:20
DX: M79.632 Pain in left forearm (principal); M79.642 Pain in left hand; G89.11 Acute pain due to trauma; F17.200 Nicotine dependence, unspecified, uncomplicated; G89.29 Other chronic pain; K21.9 Gastro-esophageal reflux disease without esophagitis; Z88.1 Allergy status to other antibiotic agents; Z91.040 Latex allergy status; Z88.6 Allergy status to analgesic agent; Z88.2 Allergy status to sulfonamides; Z88.8 Allergy status to other drugs, medicaments and biological substances; J44.9 Chronic obstructive pulmonary disease, unspecified; F20.9 Schizophrenia, unspecified; F31.9 Bipolar disorder, unspecified; W18.39XA Other fall on same level, initial encounter; Y93.89 Activity, other specified; Y92.89 Other specified places as the place of occurrence of the external cause; Y99.8 Other external cause status
CPT/HCPCS: 73090; 73130; 99284